=== PATIENT | female | born 1955 | race African-American/Black ===

== ENCOUNTER 2018-06-22 06:38 | Day surgery (SDC) | payer MEDICARE, MEDICAID ==
--- NOTE | 2018-05-28 17:21 | Opthalmology H&P ---
Ophthalmology H&P H&P Chief Complaint: decreased vision in right eye HPI Vision Affects Ability to: read, manage personal affairs Past Ocular History: glaucoma HPI Narrative Blurry Vision Exam Visual Acuity: OD 20/80 OS 20/50 Tension: OD 20 OS 21 Eye Exam: normal OU: external exam, palpebral fissure-width, marginal reflex distance, levator function, corneas, anterior chambers, lens, fundus exam - NPDR OU; findings: fundus exam - NPDR OU Assessment/Plan Treatment Plan: cataract extraction w/ lens implant Goals of Treatment: improvement of vision, enhance quality of life Attestation Attestation The risks and benefits of the surgery as well as alternative procedures were explained to the patient in detail. Shai Peterson MD May 28, 2018 17:21
--- NOTE | 2018-05-28 17:23 | Pre-Procedure Note/Attestation ---
Pre-Procedure Note/Attestation Complete Prior to Procedure Planned Procedure: right Procedure Narrative: Cataract Extraction With Intraocular lens Implant right eye Indications for Procedure Pre-Operative Diagnosis: Cataract Right Eye Attestation I attest that I discussed the nature of the procedure; its benefits; risks and complications; and alternatives (and the risks and benefits of such alternatives ), prior to the procedure, with the patient (or the patient's legal patient registration representative). I attest that, if there was a reasonable possibility of needing a blood transfusion, the patient (or the patient's legal patient registration representative) was given the [facility] standardized written summary, pursuant to the [place] Blood Safety Act ([place] Health and Safety Code # 1645, as amended). I attest that I re-evaluated the patient just prior to the surgery and that there has been no change in the patient's H&P, except as documented below: Shai Peterson MD May 28, 2018 17:23
--- NOTE | 2018-06-19 10:08 | Opthalmology H&P ---
Ophthalmology H&P H&P Chief Complaint: decreased vision in right eye HPI Vision Affects Ability to: read, manage personal affairs Past Ocular History: glaucoma, retinal problems - NPDR OU HPI Narrative Blurry Vision Exam Visual Acuity: OD 20/80 OS 20/60 Tension: OD 17 OS 19 Eye Exam: normal OU: external exam, palpebral fissure-width, marginal reflex distance, levator function, corneas, anterior chambers; findings: lens - Nuclear Sclerotic Cataracts OU, fundus exam - NPDR OU Assessment/Plan Treatment Plan: cataract extraction w/ lens implant Goals of Treatment: improvement of vision, enhance quality of life Attestation Attestation The risks and benefits of the surgery as well as alternative procedures were explained to the patient in detail. Shai Peterson MD Jun 19, 2018 10:08
--- NOTE | 2018-06-19 10:09 | Pre-Procedure Note/Attestation ---
Pre-Procedure Note/Attestation Complete Prior to Procedure Planned Procedure: right Procedure Narrative: Cataract Extraction With Intraocular Lens Implant Right Eye Indications for Procedure Pre-Operative Diagnosis: Nuclear Sclerotic Cataract Right Eye Attestation I attest that I discussed the nature of the procedure; its benefits; risks and complications; and alternatives (and the risks and benefits of such alternatives ), prior to the procedure, with the patient (or the patient's legal kiosk sales representative). I attest that, if there was a reasonable possibility of needing a blood transfusion, the patient (or the patient's legal kiosk sales representative) was given the [facility] standardized written summary, pursuant to the [place] Blood Safety Act ([place] Health and Safety Code # 1645, as amended). I attest that I re-evaluated the patient just prior to the surgery and that there has been no change in the patient's H&P, except as documented below: Shai Peterson MD Jun 19, 2018 10:09
[2018-06-22] VITALS (9 sets, daily range): BP systolic 114–139; BP diastolic 72–82
[~2018-06-22] VITALS: Ht 152.4 cm; Wt 127.0 kg
[~2018-06-22 06:38] MED LIST: Akten 3.5% 1ml Btl RIGHT EYE ONE; Cyclopentolate 1% Opth Sol 2ml RIGHT EYE SCH; Diclofenac Sod 0.1% Op Soln RIGHT EYE SCH; Phenylephrine 10% Opth Soln 5ml RIGHT EYE SCH; Proparacaine 0.5% Opth Soln 15ml RIGHT EYE ONE; Tetracaine 0.5% Opth 4ml Soln RIGHT EYE ONE; Tobramycin Op Soln 0.3% 5ml RIGHT EYE SCH; Tropicamide 1% Opth 15ml Soln RIGHT EYE SCH
[2018-06-22] MEDS ORDERED: Diclofenac Sod 0.1% Op Soln RIGHT EYE SCH (07:00)
[2018-06-22] MEDS ORDERED: Pred Forte 1% Opth Susp 1ml ONE (07:00)
[2018-06-22] MEDS ORDERED: Akten 3.5% 1ml Btl RIGHT EYE ONE (07:00)
[2018-06-22] MEDS ORDERED: Pilocarpine 1% Opth 15ml Soln ONE (07:00)
[2018-06-22] MEDS ORDERED: Proparacaine 0.5% Opth Soln 15ml RIGHT EYE ONE (07:00)
[2018-06-22] MEDS ORDERED: Tetracaine 0.5% Opth 4ml Soln RIGHT EYE ONE (07:00)
[2018-06-22] MEDS ORDERED: Dexamethasone 4mg/ml vial ONE (07:00)
[2018-06-22] MEDS ORDERED: Maxitrol Opth Oint 3.5gm ONE (07:00)
[2018-06-22] MEDS: Phenylephrine 10% Opth Soln 5ml RIGHT EYE SCH ×3 (08:56→09:29)
[2018-06-22] MEDS: Cyclopentolate 1% Opth Sol 2ml RIGHT EYE SCH ×3 (08:56→09:30)
[2018-06-22] MEDS: Tropicamide 1% Opth 15ml Soln RIGHT EYE SCH ×3 (08:56→09:30)
[2018-06-22] MEDS: Tobramycin Op Soln 0.3% 5ml RIGHT EYE SCH ×3 (08:57→09:30)
[2018-06-22] MEDS ORDERED: SIMVASTATIN10 MG ORAL (09:27)
[2018-06-22] MEDS ORDERED: GABAPENTIN300 MG ORAL (09:27)
[2018-06-22] MEDS ORDERED: BACLOFEN10 MG ORAL (09:27)
[2018-06-22] MEDS ORDERED: NOVOLOG100 UNITS1 SUBQ (09:27)
[2018-06-22] MEDS ORDERED: NORCO 10-325 T1 EACH ORAL (09:27)
[2018-06-22] MEDS ORDERED: AMLODIPINE BESYL5 MG ORAL (09:27)
[2018-06-22] MEDS ORDERED: IBUPROFEN600 MG ORAL (09:27)
[2018-06-22] MEDS ORDERED: LEVEMIR FL100 UNIT/2 SQ (09:27)
[2018-06-22] MEDS ORDERED: HYDRALAZINE HCL25 M1 ORAL (09:27)
[2018-06-22] MEDS ORDERED: BRIMONIDINE TART5 ML BOTH EYES (09:27)
[2018-06-22] MEDS ORDERED: LISINOPRIL20 MG ORAL (09:27)
[2018-06-22] MEDS ORDERED: LR 1000ml 1,000 ML IVLG SCH (10:18)
--- NOTE | 2018-06-22 10:18 | Anethesia Preoperative Eval ---
Anesthesia Pre-op PMH/ROS General Date of Evaluation: Jun 22, 2018 Time of Evaluation: 10:13 Anesthesiologist: Darci ASA Score: ASA 3 Mallampati Score Class I : Soft palate, uvula, fauces, pillars visible Class II: Soft palate, uvula, fauces visible Class III: Soft palate, base of uvula visible Class IV: Only hard plate visible Mallampati Classification: Class III Surgeon: Kristen Diagnosis: R eye cataract Surgical Procedure: R eye cataract extraction Anesthesia History: none Family History: no anesthesia problems Allergies: Coded Allergies: No Known Allergies (Unverified , 05/28/18) Patient NPO?: Yes Past Medical History Cardiovascular: Reports: HTN; Denies: CAD, SC, valve dz, arrhythmia, other Pulmonary: Reports: ANJELICA; Denies: asthma, COPD, other Gastrointestinal/Genitourinary: Reports: GERD; Denies: CRI, ESRD, other Neurologic/Psychiatric: Reports: other - chronic pain Endocrine: Reports: DM - poorly; Denies: hypothyroidism, steroids, other HEENT: Reports: cataract (L), cataract (R); Denies: glaucoma, [place] (L), [place] (R), other Hematology/Immune: Denies: anemia, DVT, bleeding disorder, other Musculoskeletal/Integumentary: Reports: DJD; Denies: OA, RA, DDD, edema, other Other: obesity - morbid obesity PMH Narrative: as above PSxH Narrative: see H&P Anesthesia Pre-op Phys. Exam Physician Exam Last Vital Signs Date Time Temp Pulse Resp B/P (MAP) Pulse Ox O2 Delivery O2 Flow Rate FiO2 06/22/18 09:17 97.1 79 16 114/81 94 06/22/18 09:15 Room Air Constitutional: NAD Neurologic: CN 2-12 intact Cardiovascular: RRR, no M/R/G Respiratory: CTA Gastrointestinal: other - obesity Airway Exam Mallampati Score: Class III MO: limited Neck: short ROM: limited Teeth: missing Dentures: no upper, no lower Anesthesia Pre-op A/P Labs see H&P Studies Pre-op Studies: EKG - SR Risk Assessment & Plan Assessment: ASA 3 Plan: MAC Status Change Before Surgery: No Pre-Antibiotics Drug: none Gm Bejarano MD Jun 22, 2018 10:17
[2018-06-22] MEDS ORDERED: Propofol 200mg/20ml IV ONE (10:19)
[2018-06-22] MEDS ORDERED: Midazolam 2mg/2ml Inj ONE (10:19)
[2018-06-22] MEDS ORDERED: fentaNYL 100 mcg/2 mL IV ONE (10:19)
[2018-06-22] MEDS ORDERED: fentaNYL 100 mcg/2 mL IV PRN (10:30)
[2018-06-22] MEDS ORDERED: LR 1000ml ONE (11:00)
[2018-06-22] MEDS ORDERED: Sterile Water Irrig 1000ml IRRIG ONE (11:00)
[2018-06-22] MEDS ORDERED: NS Irrig 1000ml ONE (11:00)
--- NOTE | 2018-06-22 11:30 | Immediate Post-Op Evaluation ---
Immediate Post-Op Evalulation Immediate Post-Op Evalulation Procedure: R eye cataract extraction with IOL Date of Evaluation: Jun 22, 2018 Time of Evaluation: 11:29 IV Fluids: 300 Blood Products: none Estimated Blood Loss: none Urinary Output: none Blood Pressure Systolic: 134 Blood Pressure Diastolic: 77 Pulse Rate: 72 Respiratory Rate: 22 O2 Sat by Pulse Oximetry: 97 Temperature (Fahrenheit): 97.6 Pain Score (1-10): 2 Nausea: No Vomiting: No Patient Status: awake, patent, none Hydration Status: adequate Gm Bejarano MD Jun 22, 2018 11:30
--- NOTE | 2018-06-22 12:57 | 48 Hour Post Anesthesia Eval ---
Post Anesthesia Evaluation Procedure: R eye cataract extraction with IOL Date of Evaluation: Jun 22, 2018 Time of Evaluation: 12:56 Blood Pressure Systolic: 132 0: 75 Pulse Rate: 68 Respiratory Rate: 20 Temperature (Fahrenheit): 97.6 O2 Sat by Pulse Oximetry: 98 Airway: patent Nausea: No Vomiting: No Pain Intensity: 2 Hydration Status: adequate Cardiopulmonary Status: stable Mental Status/LOC: patient returned to baseline Follow-up Care/Observations: n/a Post-Anesthesia Complications: none Follow-up care needed: ready to discharge Gm Bejarano MD Jun 22, 2018 12:57
[2018-06-22] MEDS ORDERED: EPINEPHrine 1mg/1ml Amp ONE (14:17)
[2018-06-22] MEDS ORDERED: BSS 15ml BTL ONE (14:18)
[2018-06-22] MEDS ORDERED: Sodium Hyaluronate 14 mg/ml 0.85ml ONE (14:18)
[2018-06-22] MEDS ORDERED: Povidone-Iodine 5% opth solution ONE (14:18)
[2018-06-22] MEDS ORDERED: BSS 500ml btl ONE (14:18)
--- NOTE | 2018-06-23 12:54 | Operative Note - PDOC ---
Operative Note Operative Note Date of Operation/Procedure: Jun 22, 2018 Chief Complaint: blurry vision Pre-op Diagnosis: Nuclear Sclerotic Cataract Right Eye Procedure: Phaco with IOL Post-op Diagnosis: Pseudophakia Post-op Diagnosis: same as pre-op Operative Findings: consistent w/pre-op dx studies Surgeon: Kristen Anesthesiologist: Darci Anesthesia: MAC Specimen: none Complications: none Condition: stable Fluids: LR Estimated Blood Loss: none Drains: none Implant(s) used?: Yes Indications for Procedure cataract Description of Procedure This patient has been complaining visually significant cataract in the affected eye with the best corrected visual acuity under moderate glare conditions worse. The patient complains of difficulties with glare in performing activities of daily living and wants to manage personal affairs with comfort and accuracy and see well enough to move with safety at home and outdoors. The risks, benefits and alternatives of the procedure were discussed with the patient in the office prior to scheduling surgery. All questions from the patient were answered after the surgical procedure was explained in detail. The risks of the procedure as explained to the patient include, but are not limited to, pain, infection, bleeding, loss of vision, retinal detachment, need for further surgery, loss of lens nucleus, double vision, etc. Alternative procedures were discussed which include, to do nothing or seek a second opinion. Informed consent for this procedure was obtained from the patient. The patient was referred to a primary care physician for a cardiopulmonary clearance prior to surgery, after proper evaluation was done patient was properly scheduled for outpatient surgery. The patient was brought to the operating room where the anesthesiologist established I.V. lines and cardiac monitoring leads. Mild intravenous sedation was administered. The patient was then prepared with a 5% solution of povidone -iodine to the conjunctival fornix and lashes, and a 5% solution of povidone- iodine to the lids and periorbital skin. The patient was then draped in the usual sterile fashion. A lid speculum was then placed in the operative eye. A keratome blade was then used to create a biplanar incision into the anterior chamber. Viscoelastics was then instilled into the anterior chamber. A 3-mm single pass clear corneal incision was made just anterior to the vascular arcade of the temporal limbus using a keratome. Anterior capsulorrhexis was created. The nucleus was hydrodissected and hydrodelineated, and was freely movable in the capsular bag. The nucleus was then phacoemulsified using a quadrantic [id number] technique. Following the deep groove formation, the lens was split bimanually and the resultant quadrants and cortical material was removed under vacuum burst -mode phacoemulsification. Peripheral cortex was removed with the irrigation and aspiration handpiece. The capsular bag was expanded with viscoelastic. The intraocular lens was then inspected for right power and size and thought to be satisfactory. The implant was inspected under the microscope and found to be free of defects. The implant was inserted into the cartridge system under viscoelastic and placed in the capsular bag. The trailing haptic was positioned with the cartridge system. Viscoelastics was removed from the anterior chamber using the irrigation and aspiration unit. The corneal wound was then tested for leaks and none were found. The lid speculum were then removed. Sponge and needle counts were correct. An eye patch and shield were placed over the operative eye. The patient was taken to the recovery room in stable condition. There were no complications. The patient tolerated the procedure well. The patient was then transferred to the ambulatory surgery unit in stable and satisfactory condition , was given detailed written instructions and asked to follow up in the office the next day. Shai Peterson MD Jun 23, 2018 12:54
--- NOTE | 2018-06-23 12:54 | Brief Operative Note ---
Immediate Post Operative Note Operative Note Chief Complaint: blurry vision Pre-op Diagnosis: Nuclear Sclerotic Cataract Right Eye Procedure: Phaco with IOL Post-op Diagnosis: Pseudophakia Post-op Diagnosis: same as pre-op Findings: consistent w/pre-op dx studies Surgeon: Kristen Anesthesiologist: Darci Anesthesia: MAC Specimen: none Complications: none Condition: stable Fluids: LR Estimated Blood Loss: none Drains: none Implant(s) used?: Yes Shai Peterson MD Jun 23, 2018 12:54
== END 2018-06-22 12:55 | disposition home or self-care (01) ==
LOC: EDSEX 06:38 → SUR 06:38
DX: H25.11 Age-related nuclear cataract, right eye (principal); I10 Essential (primary) hypertension; G47.33 Obstructive sleep apnea (adult) (pediatric); K21.9 Gastro-esophageal reflux disease without esophagitis; E11.9 Type 2 diabetes mellitus without complications; M19.90 Unspecified osteoarthritis, unspecified site; E66.9 Obesity, unspecified; Z68.43 Body mass index [BMI] 50.0-59.9, adult
CPT/HCPCS: 66984; 82962; J0171; J1100; J2250; J2704; J3010; J3370; V2632; 94003; 94150

== ENCOUNTER 2019-10-05 06:17 | Day surgery (SDC) | payer MEDICARE, MEDICAID ==
--- NOTE | 2019-09-24 10:43 | Opthalmology H&P ---
Ophthalmology H&P H&P Chief Complaint: decreased vision in left eye HPI Vision Affects Ability to: read, focus/use eyes together, manage personal affairs Past Ocular History: glaucoma, retinal problems - NPDR OU HPI Narrative blurry vision Exam Visual Acuity: OD 20/30 OS 20/100 Tension: OD 13 OS 16 Eye Exam: normal OU: external exam, palpebral fissure-width, marginal reflex distance, levator function, corneas, anterior chambers; findings: lens - IOL OD , NS CAT. OS, fundus exam - NPDR OU, Glaucoma Assessment/Plan Treatment Plan: cataract extraction w/ lens implant Goals of Treatment: improvement of vision, enhance quality of life Attestation Attestation The risks and benefits of the surgery as well as alternative procedures were explained to the patient in detail. Shai Peterson MD Sep 24, 2019 10:43
--- NOTE | 2019-09-24 10:44 | Pre-Procedure Note/Attestation ---
Pre-Procedure Note/Attestation Complete Prior to Procedure Planned Procedure: left Procedure Narrative: Cataract extraction with intraocular lens implant left eye Indications for Procedure Pre-Operative Diagnosis: Nuclear sclerotic cataract left eye Attestation I attest that I discussed the nature of the procedure; its benefits; risks and complications; and alternatives (and the risks and benefits of such alternatives ), prior to the procedure, with the patient (or the patient's legal mill representative). I attest that, if there was a reasonable possibility of needing a blood transfusion, the patient (or the patient's legal mill representative) was given the [facility] standardized written summary, pursuant to the [place] Blood Safety Act ([place] Health and Safety Code # 1645, as amended). I attest that I re-evaluated the patient just prior to the surgery and that there has been no change in the patient's H&P, except as documented below: Shai Peterson MD Sep 24, 2019 10:44
[2019-09-27 10:22] LABS: ANION GAP -3 mmol/L (5-15); BLOOD UREA NITROGEN 31 mg/dL (7-18); CALCIUM 9.2 MG/DL (8.5-10.1); CARBON DIOXIDE 31 MMOL/L (21-32); CHLORIDE 97 MMOL/L (98-107); CREATININE 1.2 MG/DL (0.55-1.30); POTASSIUM 4.4 MMOL/L (3.5-5.1); SODIUM 125 MMOL/L (136-145)
--- NOTE | 2019-10-04 13:43 | Pre-Procedure Note/Attestation ---
Pre-Procedure Note/Attestation Complete Prior to Procedure Planned Procedure: left Procedure Narrative: Cataract extraction with IOL implant left eye Indications for Procedure Pre-Operative Diagnosis: Nuclear sclerotic cataract left eye Attestation I attest that I discussed the nature of the procedure; its benefits; risks and complications; and alternatives (and the risks and benefits of such alternatives ), prior to the procedure, with the patient (or the patient's legal help desk representative). I attest that, if there was a reasonable possibility of needing a blood transfusion, the patient (or the patient's legal help desk representative) was given the [facility] standardized written summary, pursuant to the [place] Blood Safety Act ([place] Health and Safety Code # 1645, as amended). I attest that I re-evaluated the patient just prior to the surgery and that there has been no change in the patient's H&P, except as documented below: Shai Peterson MD Oct 04, 2019 13:43
[~2019-10-05] VITALS: Ht 154.9 cm; Wt 90.7 kg
[2019-10-05] VITALS (8 sets, daily range): BP systolic 137–171; BP diastolic 73–96
[~2019-10-05 06:17] MED LIST changes: +AMLODIPINE BESYL5 MG ORAL; +Akten 3.5% 1ml Btl LEFT EYE ONE; -Akten 3.5% 1ml Btl RIGHT EYE ONE; +BACLOFEN10 MG ORAL; +BRIMONIDINE TART5 ML BOTH EYES; +Cyclopentolate 1% Opth Sol 2ml LEFT EYE SCH; -Cyclopentolate 1% Opth Sol 2ml RIGHT EYE SCH; +Diclofenac Sod 0.1% Op Soln LEFT EYE SCH; -Diclofenac Sod 0.1% Op Soln RIGHT EYE SCH; +GABAPENTIN300 MG ORAL; +HYDRALAZINE HCL25 M1 ORAL; +IBUPROFEN600 MG ORAL; +LEVEMIR FL100 UNIT/2 SQ; +LISINOPRIL20 MG ORAL; +NORCO 10-325 T1 EACH ORAL; +NOVOLOG100 UNITS1 SUBQ; +Phenylephrine 10% Opth Soln 5ml LEFT EYE SCH; -Phenylephrine 10% Opth Soln 5ml RIGHT EYE SCH; +Proparacaine 0.5% Opth Soln 15ml LEFT EYE ONE; -Proparacaine 0.5% Opth Soln 15ml RIGHT EYE ONE; +SIMVASTATIN10 MG ORAL; +Tetracaine 0.5% Opth 4ml Soln LEFT EYE ONE; -Tetracaine 0.5% Opth 4ml Soln RIGHT EYE ONE; +Tobramycin Op Soln 0.3% 5ml LEFT EYE SCH; -Tobramycin Op Soln 0.3% 5ml RIGHT EYE SCH; +Tropicamide 1% Opth 15ml Soln LEFT EYE SCH; -Tropicamide 1% Opth 15ml Soln RIGHT EYE SCH
[2019-10-05] MEDS ORDERED: Akten 3.5% 1ml Btl LEFT EYE ONE (07:00)
[2019-10-05] MEDS ORDERED: Proparacaine 0.5% Opth Soln 15ml LEFT EYE ONE (07:00)
[2019-10-05] MEDS ORDERED: Tetracaine 0.5% Opth 4ml Soln LEFT EYE ONE (07:00)
[2019-10-05] MEDS ORDERED: Pilocarpine 1% Opth 15ml Soln ONE (07:00)
[2019-10-05] MEDS ORDERED: Maxitrol Opth Oint 3.5gm ONE (07:00)
[2019-10-05] MEDS ORDERED: prednisoLONE acetate 1% Opth Susp 1ml ONE (07:00)
[2019-10-05] MEDS: Diclofenac Sod 0.1% Op Soln LEFT EYE SCH ×3 (07:20→07:45)
[2019-10-05] MEDS: Phenylephrine 10% Opth Soln 5ml LEFT EYE SCH ×3 (07:20→07:44)
[2019-10-05] MEDS: Tobramycin Op Soln 0.3% 5ml LEFT EYE SCH ×3 (07:20→07:44)
[2019-10-05] MEDS: Tropicamide 1% Opth 15ml Soln LEFT EYE SCH ×3 (07:20→07:44)
[2019-10-05] MEDS: Cyclopentolate 1% Opth Sol 2ml LEFT EYE SCH ×3 (07:20→07:44)
[2019-10-05] MEDS ORDERED: Sodium Hyaluronate 10 mg/ml 0.85ml ONE (07:50)
[2019-10-05] MEDS ORDERED: Povidone-Iodine 5% opth solution ONE (07:50)
[2019-10-05] MEDS ORDERED: BSS 500ml btl ONE (07:50)
[2019-10-05] MEDS ORDERED: BSS 15ml BTL ONE (07:50)
[2019-10-05] MEDS ORDERED: LR 1000ml ONE (09:00)
[2019-10-05] MEDS ORDERED: Sterile Water Irrig 1000ml IRRIG ONE (09:00)
[2019-10-05] MEDS ORDERED: Lidocaine 1% MPF 10mg/ml 5ml ONE (09:00)
[2019-10-05] MEDS ORDERED: NS Irrig 1000ml ONE (09:00)
[2019-10-05] MEDS ORDERED: acetaZOLAMIDE 500mg Inj ONE (09:02)
[2019-10-05] MEDS ORDERED: Midazolam 2mg/2ml Inj ONE (09:14)
[2019-10-05] MEDS ORDERED: LR 1000ml 1,000 ML IVLG SCH (09:20)
--- NOTE | 2019-10-05 09:26 | Anethesia Preoperative Eval ---
Anesthesia Pre-op PMH/ROS General Date of Evaluation: Oct 05, 2019 Time of Evaluation: 09:17 Anesthesiologist: Sergio ASA Score: ASA 3 Mallampati Score Class I : Soft palate, uvula, fauces, pillars visible Class II: Soft palate, uvula, fauces visible Class III: Soft palate, base of uvula visible Class IV: Only hard plate visible Mallampati Classification: Class III Surgeon: Kristen Diagnosis: Cataract OS Surgical Procedure: Cat Ext IOL OS Anesthesia History: none Family History: no anesthesia problems Allergies: Coded Allergies: No Known Allergies (Unverified , 05/28/18) Medications: see eMAR Patient NPO?: Yes Past Medical History Cardiovascular: Reports: HTN, other - HL Pulmonary: Reports: asthma Endocrine: Reports: DM HEENT: Reports: cataract (L), cataract (R) Musculoskeletal/Integumentary: Reports: OA Other: obesity - Morbid 40 Anesthesia Pre-op Phys. Exam Physician Exam Last Vital Signs Date Time Temp Pulse Resp B/P (MAP) Pulse Ox O2 Delivery O2 Flow Rate FiO2 10/05/19 07:31 97.9 67 18 164/86 99 Room Air Constitutional: NAD Neurologic: CN 2-12 intact Cardiovascular: RRR Respiratory: CTA Gastrointestinal: S/NT/ND Airway Exam Mallampati Score: Class III MO: limited ROM: limited Teeth: missing, intact Anesthesia Pre-op A/P Labs Chemistry Test 10/05/19 07:28 10/05/19 07:49 POC Whole Blood Glucose Pending Pending Risk Assessment & Plan Assessment: ASA 3 Plan: TIVA Status Change Before Surgery: No Moses Hill MD Oct 05, 2019 09:26
--- NOTE | 2019-10-05 09:26 | Immediate Post-Op Evaluation ---
Immediate Post-Op Evalulation Immediate Post-Op Evalulation Procedure: Cat Ext IOL OS Date of Evaluation: Oct 05, 2019 Time of Evaluation: 10:32 IV Fluids: 800 NS Blood Products: 0 Estimated Blood Loss: 1 Urinary Output: 0 Blood Pressure Systolic: 167 Blood Pressure Diastolic: 106 Pulse Rate: 72 Respiratory Rate: 16 O2 Sat by Pulse Oximetry: 100 Temperature (Fahrenheit): 97.6 Pain Score (1-10): 1 Nausea: No Vomiting: No Complications 0 Patient Status: awake, reacts, patent, none Hydration Status: adequate Moses Hill MD Oct 05, 2019 09:26
--- NOTE | 2019-10-05 09:27 | 48 Hour Post Anesthesia Eval ---
Post Anesthesia Evaluation Procedure: Cat Ext IOL OS Date of Evaluation: Oct 05, 2019 Time of Evaluation: 12:43 Blood Pressure Systolic: 175 0: 84 Pulse Rate: 76 Respiratory Rate: 18 Temperature (Fahrenheit): 98 O2 Sat by Pulse Oximetry: 99 Airway: patent Nausea: No Vomiting: No Pain Intensity: 1 Hydration Status: adequate Cardiopulmonary Status: Stable Mental Status/LOC: patient returned to baseline Follow-up Care/Observations: 0 Post-Anesthesia Complications: 0 Follow-up care needed: ready to discharge Moses Hill MD Oct 05, 2019 09:27
[2019-10-05] MEDS ORDERED: HYDROcodone/Acetamin 5/325 tab ORAL PRN (09:30)
[2019-10-05] MEDS ORDERED: fentaNYL 100 mcg/2 mL IV PRN (09:30)
[2019-10-05] MEDS ORDERED: DiphenhydrAMINE 50mg/ml Inj IVP PRN (09:30)
[2019-10-05] MEDS ORDERED: Atropine Sulfate 0.4mg/ml inj IVP PRN (09:30)
[2019-10-05] MEDS ORDERED: Metoclopramide 10mg/2ml Inj IVP PRN (09:30)
[2019-10-05] MEDS ORDERED: HYDROcodone/Acetamin 7.5/325 tab ORAL PRN (09:30)
[2019-10-05] MEDS ORDERED: Hydromorphone 0.5mg/0.5ml inj IVP PRN (09:30)
[2019-10-05] MEDS ORDERED: oxyCODONE HCL/Acetaminophen 5/325mg ORAL PRN (09:30)
[2019-10-05] MEDS ORDERED: LORazepam Inj 2mg/ml 1ml IV PRN (09:30)
[2019-10-05] MEDS ORDERED: Ketorolac 30mg Inj IV PRN ×2 (09:30)
[2019-10-05] MEDS ORDERED: Meperidine 25mg/0.5ml Inj (FOR RIGORS ONLY) IV PRN (09:30)
[2019-10-05] MEDS ORDERED: Labetalol 5mg/ml 20ml vial IV PRN (09:30)
[2019-10-05] MEDS ORDERED: Midazolam 2mg/2ml Inj IVP PRN (09:30)
--- NOTE | 2019-10-08 10:57 | Brief Operative Note ---
Immediate Post Operative Note Operative Note Chief Complaint: Blurry vision Pre-op Diagnosis: Nuclear sclerotic cataract left eye Procedure: Cataract extraction with IOL implant left eye Post-op Diagnosis: Pseudo OS Findings: consistent w/pre-op dx studies Surgeon: Shai Peterson MD Anesthesiologist: Moses Hill MD Anesthesia: MAC Specimen: none Complications: none Condition: stable Fluids: LR Estimated Blood Loss: none Drains: none Implant(s) used?: Yes - IOL-OS Shai Peterson MD Oct 08, 2019 10:57
--- NOTE | 2019-10-08 11:01 | Operative Note - PDOC ---
Operative Note Operative Note Date of Operation/Procedure: Oct 05, 2019 Chief Complaint: Blurry vision Pre-op Diagnosis: Nuclear sclerotic cataract left eye Procedure: Cataract extraction with IOL implant left eye Post-op Diagnosis: Pseudo OS Operative Findings: consistent w/pre-op dx studies Surgeon: Shai Peterson MD Anesthesiologist: Moses Hill MD Anesthesia: MAC Specimen: none Complications: none Condition: stable Fluids: LR Estimated Blood Loss: none Drains: none Implant(s) used?: Yes - IOL-OS Indications for Procedure Nuclear sclerotic cataract left eye Description of Procedure This patient has been complaining visually significant cataract in the left eye with the best corrected visual acuity of 20/100 under moderate glare conditions worse. The patient complains of difficulties with glare in performing activities of daily living and wants to manage personal affairs with comfort and accuracy and see well enough to move with safety at home and outdoors. The risks, benefits and alternatives of the procedure were discussed with the patient in the office prior to scheduling surgery. All questions from the patient were answered after the surgical procedure was explained in detail. The risks of the procedure as explained to the patient include, but are not limited to, pain, infection, bleeding, loss of vision, retinal detachment, need for further surgery, loss of lens nucleus, double vision, etc. Alternative procedures were discussed which include, to do nothing or seek a second opinion. Informed consent for this procedure was obtained from the patient. The patient was referred to a primary care physician for a cardiopulmonary clearance prior to surgery, after proper evaluation was done patient was properly scheduled for outpatient surgery. The patient was brought to the operating room where the anesthesiologist established I.V. lines and cardiac monitoring leads. Mild intravenous sedation was administered. The patient was then prepared with a 5% solution of povidone -iodine to the conjunctival fornix and lashes, and a 5% solution of povidone- iodine to the lids and periorbital skin. The patient was then draped in the usual sterile fashion. A lid speculum was then placed in the operative eye. A keratome blade was then used to create a biplanar incision into the anterior chamber. Viscoelastics was then instilled into the anterior chamber. A curvilinear capsulorrhexis was then fashioned with an utrata forceps. A BSS was used with G-27 cannula was used to hydrodissect and hydrodelineate the lens nucleus. Paracentesis incision was made at 9 o'clock with sharp blade. The phacoemulsification unit, after being properly adjusted and tested, was then used to emulsify the nucleus. Residual cortical material was aspirated with the irrigation and aspiration unit. [place] was then instilled into the anterior chamber. The corneal wound was then enlarged to the size of the optic with the cary keratome blade. The intraocular lens was then inspected for right power and size and thought to be satisfactory. Then the lens was gently placed in the capsular bag. Positioning within the capsular bag was confirmed by direct visualization. Optic centration was accomplished with a [place] hook. Viscoelastics was removed from the anterior chamber using the irrigation and aspiration unit. The corneal wound was then tested for leaks and none were found. The lid speculum were then removed. Sponge and needle counts were correct. An eye patch and shield were placed over the operative eye. The patient was taken to the recovery room in stable condition. There were no complications. The patient tolerated the procedure well. The patient was then transferred to the ambulatory surgery unit in stable and satisfactory condition , was given detailed written instructions and asked to follow up in the office the next day. Shai Peterson MD Oct 08, 2019 11:01
== END 2019-10-05 11:30 | disposition home or self-care (01) ==
LOC: SUR 06:17
DX: H25.12 Age-related nuclear cataract, left eye (principal); H40.9 Unspecified glaucoma; E11.9 Type 2 diabetes mellitus without complications; E66.01 Morbid (severe) obesity due to excess calories; I10 Essential (primary) hypertension; M19.90 Unspecified osteoarthritis, unspecified site; Z68.37 Body mass index [BMI] 37.0-37.9, adult
CPT/HCPCS: 36415; 66984; 80048; 82962; 94003; J1100; J1120; J2250; J2704; J3370; J7030; J7120; U0002; V2632; 94150